=== PATIENT | female | born 1980 | race Caucasian/White ===

== ENCOUNTER 2017-01-07 12:39 | Emergency (ER) | payer OTHER ==
[~2017-01-07] VITALS: Ht 165.1 cm; Wt 80.0 kg
[2017-01-07 12:43] VITALS: BP 133/85; PULSE 80; RESP 15; TEMP 98.2; O2SAT 99
[2017-01-07] MEDS ORDERED: SODIUM CHLOR 0.9% 1000 ML INJ 1,000 ML IV ONE (13:13)
--- NOTE | 2017-01-07 13:14 | PD ---
HPI Chief Complaint: Related Problem Time Seen by Provider: 13:07 Travel History International Travel<30 days: No Contact w/Intl Traveler<30days: No Traveled to known affect area: No History of Present Illness HPI 36-year-old female 17 weeks estimated gestational age presents for evaluation of nausea, vomiting, dizziness and headache. She reports that she was at work today and arrived at 9 AM, shortly after everyone had been evacuated because of a gas leak. She reports that they were allowed back in at 9 AM and around 1.5 hours later she began experiencing nausea, vomiting, dizziness and headache. She reports that other employees have been complaining of some lightheadedness as well. The patient has had some mild abdominal cramping which she relates to the vomiting. She denies any vaginal bleeding, chest pain or shortness of breath, blurred vision, weakness. She has no other complaints. [facility] Past Medical History ?: LMP: 09/10/16 Social History Alcohol Use: No Tobacco Use: No Allergies-Medications (Allergen,Severity, Reaction): Coded Allergies: No Known Allergies (Unverified , 01/07/17) Review of Systems Except as stated in HPI: all other systems reviewed are Neg Physical Exam Narrative GENERAL: Well-developed well-nourished female in no acute distress SKIN: Warm and dry. HEAD: Atraumatic. Normocephalic. EYES: Pupils equal and round. No scleral icterus. No injection or drainage. ENT: No nasal bleeding or discharge. Mucous membranes pink and moist. NECK: Trachea midline. No JVD. CARDIOVASCULAR: Regular rate and rhythm. No murmur appreciated. RESPIRATORY: No accessory muscle use. Clear to auscultation. Breath sounds equal bilaterally. GASTROINTESTINAL: Abdomen soft, non-tender, nondistended. Hepatic and splenic margins not palpable. MUSCULOSKELETAL: No obvious deformities. No edema. NEUROLOGICAL: Awake and alert. No obvious cranial nerve deficits. Motor grossly within normal limits. Normal speech. PSYCHIATRIC: Appropriate mood and affect; insight and judgment normal. Data Data Last Documented VS Vital Signs Date Time Temp Pulse Resp B/P Pulse Ox O2 Delivery O2 Flow Rate FiO2 01/07/17 12:43 98.2 80 15 133/85 99 Orders Arterial Blood Gas (Abg) (01/07/17 ) Basic Metabolic Panel (Bmp) (01/07/17 13:13) Complete Blood Count With Diff (01/07/17 13:13) Magnesium (Mg) (01/07/17 13:13) Ondansetron Inj (Zofran Inj) (01/07/17 13:15) Sodium Chlor 0.9% 1000 Ml Inj (Ns 1000 M (01/07/17 13:13) Acetaminophen (Tylenol) (01/07/17 13:15) Heart Tones (01/07/17 13:15) Labs Laboratory Tests Test 01/07/17 01/07/17 13:20 13:35 Blood Gas Puncture Site RT RADIAL Blood Gas Patient Temperature 98.6 Blood Gas HCO3 19 mmol/L Blood Gas Base Excess -3.9 mmol/L Blood Gas Oxygen Saturation 97 % Arterial Blood pH 7.49 Arterial Blood Partial 25 mmHg Pressure CO2 Arterial Blood Partial 109 mmHG Pressure O2 Arterial Blood Oxygen Content 15.7 Vol % Arterial Blood 1.5 % Carboxyhemoglobin Arterial Blood Methemoglobin 0.7 % Blood Gas Hemoglobin 11.4 G/DL Blood Gas Inspired Oxygen 21 % White Blood Count 9.7 TH/MM3 Red Blood Count 3.88 MIL/MM3 Hemoglobin 11.8 GM/DL Hematocrit 33.4 % Mean Corpuscular Volume 86.3 FL Mean Corpuscular Hemoglobin 30.4 PG Mean Corpuscular Hemoglobin 35.3 % Concent Red Cell Distribution Width 13.9 % Platelet Count 264 TH/MM3 Mean Platelet Volume 7.4 FL Neutrophils (%) (Auto) 70.5 % Lymphocytes (%) (Auto) 23.2 % Monocytes (%) (Auto) 4.9 % Eosinophils (%) (Auto) 0.9 % Basophils (%) (Auto) 0.5 % Neutrophils # (Auto) 6.8 TH/MM3 Lymphocytes # (Auto) 2.2 TH/MM3 Monocytes # (Auto) 0.5 TH/MM3 Eosinophils # (Auto) 0.1 TH/MM3 Basophils # (Auto) 0.1 TH/MM3 CBC Comment DIFF FINAL Differential Comment Sodium Level 137 MEQ/L Potassium Level 3.7 MEQ/L Chloride Level 106 MEQ/L Carbon Dioxide Level 21.4 MEQ/L Anion Gap 10 MEQ/L Blood Urea Nitrogen 5 MG/DL Creatinine 0.47 MG/DL Estimat Glomerular Filtration 151 ML/MIN Rate Random Glucose 79 MG/DL Calcium Level 8.2 MG/DL Magnesium Level 1.9 MG/DL [facility] Medical Decision Making Medical Screen Exam Complete: Yes Emergency Medical Condition: Yes Medical Record Reviewed: Yes Differential Diagnosis Carbon monoxide poisoning, dehydration, electrolyte abnormality, hyperemesis Narrative Course 36-year-old female who is 17 weeks presents with nausea, vomiting, headache and dizziness after getting in a building that had some sort of gas leak. We'll check basic lab work, carboxyhemoglobin levels. She'll be given IV fluids, Zofran and Tylenol. Lab work is unremarkable. Upon reexamination she feels improved. She is stable for discharge. She has Phenergan at home. Diagnosis Primary Impression: Nausea and vomiting Qualified Code: R11.2 - Nausea and vomiting, intractability of vomiting not specified, unspecified vomiting type Additional Impression: Cephalgia Qualified Code: R51 - Nonintractable headache, unspecified chronicity pattern , unspecified headache type Additional Instructions: Phenergan for nausea. Stay well hydrated. F/U with clinical research monitor. Return for any emergent medical conditions. Med/Other Pt SpecificInfo: No Change to Meds Disposition: 01 DISCHARGE HOME Condition: Stable Jb Martin Jan 07, 2017 13:14
[2017-01-07] MEDS ORDERED: ONDANSETRON HCL 4 MG/2 ML VIAL IVP ONE (13:15)
[2017-01-07] MEDS ORDERED: ACETAMINOPHEN 325 MG TAB PO ONE (13:15)
[2017-01-07 13:32] LABS: BLOOD GAS BASE EXCESS -3.9 mmol/L (-2-2); BLOOD GAS CARBOXYHEMOGLOBIN 1.5 % (0-4); BLOOD GAS HCO3 19 mmol/L (22-26); BLOOD GAS METHEMOGLOBIN 0.7 % (0-2); BLOOD GAS O2 HGB SATURATION 97 % (90-100); BLOOD GAS OXYGEN CONTENT 15.7 Vol % (12.0-20.0); BLOOD GAS PCO2 25 mmHg (38-42); BLOOD GAS PO2 109 mmHG (61-120); BLOOD GAS TOTAL HGB 11.4 G/DL (12.0-16.0); TEMP CORR TO 98.6
[2017-01-07 13:33] LABS: CRITICAL VALUE NO; DRAW SITE RT RADIAL; FIO2 21 %; NUMBER OF ARTERIAL PUNCTURES 1; STAT YES; ULNAR PULSE PRESENT
[2017-01-07 13:50] LABS: AUTOMATED NEUTROPHIL # 6.8 TH/MM3 (1.8-7.7); BASOPHIL # 0.1 TH/MM3 (0-0.2); BASOPHIL % 0.5 % (0.0-2.0); EOSINOPHIL # 0.1 TH/MM3 (0-0.4); EOSINOPHIL % 0.9 % (0.0-4.0); HEMATOCRIT 33.4 % (35.0-46.0); HEMO FLAGS DIFF FINAL; LYMPH % 23.2 % (9.0-44.0); LYMPHOCYTE # 2.2 TH/MM3 (1.0-4.8); MEAN CELL VOLUME 86.3 FL (80.0-100.0); MEAN CORPUSCULAR HEMOGLOBIN 30.4 PG (27.0-34.0); MEAN CORPUSCULAR HGB CONC 35.3 % (32.0-36.0); MONO % 4.9 % (0.0-8.0); NEUT % 70.5 % (16.0-70.0); PLATELET COUNT 264 TH/MM3 (150-450); RED BLOOD COUNT 3.88 MIL/MM3 (4.00-5.30); RED CELL DISTRIBUTION WIDTH 13.9 % (11.6-17.2); WHITE BLOOD COUNT 9.7 TH/MM3 (4.0-11.0)
[2017-01-07 14:06] LABS: BICARBONATE 21.4 MEQ/L (21.0-32.0); MAGNESIUM 1.9 MG/DL (1.5-2.5); POTASSIUM 3.7 MEQ/L (3.5-5.1)
[2017-01-07 15:58] VITALS: BP 88/51
== END 2017-01-07 16:04 | disposition home or self-care (01) ==
LOC: NEPD 12:39
DX: R11.2 Nausea with vomiting, unspecified (principal); R51 Headache; O26.92 Pregnancy related conditions, unspecified, second trimester; Z3A.17 17 weeks gestation of pregnancy
CPT/HCPCS: 36600; 80048; 82805; 83735; 85025; 96374; 99284; J2405; J7030

== ENCOUNTER 2017-06-03 13:45 | Emergency (ER) | payer OTHER ==
--- NOTE | 2017-06-03 14:40 | PD ---
HPI Chief Complaint Uterine contractions 1 day 38 weeks Date Seen: Jun 03, 2017 Time Seen: 14:00 Travel History International Travel<30 Days: No Contact w/Intl Traveler<30Days: No Known Affected Area: No History of Present Illness HPI Pt is a 37 yo at 38 weeks, presenting with contractions every 5-10 minutes since 9:30 this AM. care with Dr Nash, previously uncomplicated. EDC 06-17-2017 GBS negative, Denies vaginal bleeding or leaking. Active movements. Weeks Gestation: 38 Para: 0 : 1 History Past Medical History Narrative Medical h/o endometriosis Medical History: Denies Significant Hx Obstetric History Obstetric History PRIMIGRAVIDA Past Surgical History Narrative Surgical Laparoscopy for endometriosis Family History Family History: Negative Social History Alcohol Use: No Tobacco Use: No Substance Abuse: No Allergies-Medications (Allergen,Severity, Reaction): Coded Allergies: No Known Allergies (Unverified , 01/07/17) Review of Systems Except as stated in HPI: all other systems reviewed are Neg Physical Exam Narrative GENERAL: Well-nourished, well-developed patient. SKIN: Warm and dry. HEAD: Normocephalic and atraumatic. EYES: No scleral icterus. No injection or drainage. ENT: No nasal drainage noted. Mucous membranes pink. Airway patent. NECK: Supple, trachea midline. No JVD. CARDIOVASCULAR: Regular rate and rhythm without murmurs, gallops, or rubs. RESPIRATORY: Breath sounds equal bilaterally. No accessory muscle use. BREASTS: Bilateral exam showed no masses , no retractions, no nipple discharge. ABDOMEN/GI: Abdomen soft, non-tender, bowel sounds present, no rebound, no guarding Gravid to [38] weeks size Fundal Height: [38] GENITOURINARY: External Genitalia: intact and normal in appearance BUS glands: [wnl] Cervix: [soft] Dilatation: [2cm] Effacement: [70%] Station: [-3] Presentation: [vertex] Membranes: [intact] Uterine Contractions: [5-10 minutes] FHT's: Category: [1] Baseline: [140s] Reactive: [] Variability: [moderate] Decels: [none] EXTREMITIES: No cyanosis or edema. BACK: Nontender without obvious deformity. No CVA tenderness. NEUROLOGICAL: Awake and alert. Motor and sensory grossly within normal limits. Five out of 5 muscle strength in all muscle groups. Normal speech. Data Data Vital Signs Reviewed: Yes Group B Strep: Negative MDM Plan Pt is a 37 yo at 38 weeks. Presents with c/o uterine contractions. Cervix 2cm dilated, unchanged from exam earlier in the week at Doctor's office. Will allow to ambulate and recheck in 1 hour. Pt was rechecked after 1 hour without any change. status reassuring Cat 1. Will discharge home with labor precautions. Diagnosis Diagnosis: Primary Impression: 38 weeks gestation of Additional Impressions: Uterine contractions during False labor after 37 weeks of gestation without delivery Disposition: DISCHARGE HOME Condition: Good Neno Williamson MD Jun 03, 2017 14:40
== END 2017-06-03 15:26 | disposition home or self-care (01) ==
LOC: HOBED 13:45
DX: O47.1 False labor at or after 37 completed weeks of gestation (principal); Z3A.38 38 weeks gestation of pregnancy
CPT/HCPCS: 59025

== ENCOUNTER 2017-06-15 23:53 | Inpatient (IN) | payer OTHER ==
[~2017-06-15] VITALS: Ht 165.1 cm; Wt 93.4 kg
[2017-06-16] VITALS (59 sets, daily range): BP systolic 98–147; BP diastolic 52–98; PULSE 65–108; RESP 14–20; TEMP 97.4–98; O2SAT 96–100
[2017-06-16] MEDS ORDERED: LACTATED RINGER'S 1000 ML INJ 1,000 ML IV PRN (00:21)
[2017-06-16] MEDS ORDERED: LIDOCAINE HCL 1% 50 ML VIAL INFIL PRN (00:30)
[2017-06-16] MEDS ORDERED: CITRIC ACID-SODIUM CITRATE LIQ 30 ML UDC PO SCH (00:30)
[2017-06-16] MEDS ORDERED: MINERAL OIL 10 ML VIAL TOPICAL PRN (00:30)
[2017-06-16] MEDS ORDERED: SODIUM CHLORID 0.9% 500 ML INJ 500 ML IV PRN (00:30)
[2017-06-16] MEDS ORDERED: LIDOCAINE HCL 1% 50 ML VIAL I-DERMAL PRN (00:30)
[2017-06-16] MEDS ORDERED: OXYTOCIN 30 UNITS-500ML PREMIX 500 ML IV ONE (00:30)
--- NOTE | 2017-06-16 00:30 | HHI.HP ---
HPI Chief Complaint Water broke Date Seen: Jun 16, 2017 Time Seen: 00:20 Travel History International Travel<30 Days: No Contact w/Intl Traveler<30Days: No Known Affected Area: No History of Present Illness HPI Patient is 37-year-old white female at 39 weeks who has complaints of water breaking at 11:40 PM. She continually fluid. Her amnio sure is positive night. Heart rate tracing is reactive and she is having occasional contraction. Weeks Gestation: 39 Para: 0 : 1 History Obstetric History Obstetric History Patient's blood pressures been borderline high within the last couple weeks Social History Alcohol Use: No Tobacco Use: No Substance Abuse: No Allergies-Medications (Allergen,Severity, Reaction): Coded Allergies: No Known Allergies (Unverified Allergy, Unknown, 06/16/17) Review of Systems General / Constitutional: No: Fever, Weight Gain, Chills, Other Eyes: No: Diploplia, Blurred Vision, Visual changes, Pain, Photophobia HENT: No: Headaches, Vertigo, Lightheadedness Cardiovascular: No: Irregular Rhythm, Chest Pain or Discomfort, Palpitations, Tachycardia, Syncope, Varicosities, Edema, Cyanosis Respiratory: No: Cough, Short of Breath, Other Gastrointestinal: No: Nausea, Vomiting, Diarrhea Genitourinary: No: Decreased Urinary Output, Oliguria Musculoskeletal: No: Limited ROM, Weakness, Cramping, Edema, Pain Skin: No Rash, No Itching, No Dryness, No Lumps, No Change in Pigmentation, No Change in Nails, No Alopecia, No Lesions Neurologic: No: Weakness, Dizziness, Syncope, Focal Abnormalities, Coordination Problem, Headache, Slurred Speech, Seizures Psychiatric: No: Depression, Suicidal Ideations, Homicidal Ideation Endocrine: No: Heat Intolerance, Cold Intolerance, Polydipsia, Polyuria, Other Physical Exam Narrative GENERAL: Well-nourished, well-developed patient. SKIN: Warm and dry. HEAD: Normocephalic and atraumatic. EYES: No scleral icterus. No injection or drainage. ENT: No nasal drainage noted. Mucous membranes pink. Airway patent. NECK: Supple, trachea midline. No JVD. CARDIOVASCULAR: Regular rate and rhythm without murmurs, gallops, or rubs. RESPIRATORY: Breath sounds equal bilaterally. No accessory muscle use. BREASTS: Bilateral exam showed no masses , no retractions, no nipple discharge. ABDOMEN/GI: Abdomen soft, non-tender, bowel sounds present, no rebound, no guarding Gravid to [39-] weeks size Fundal Height: [39-] GENITOURINARY: External Genitalia: intact and normal in appearance BUS glands: [-] Cervix: [Posterior-] Dilatation: [2-] Effacement: [50-] Station: [-3] Presentation: [-vtx] Membranes: [ ruptured] amnio sure positive Uterine Contractions: [occ-] FHT's: Category: [-1] Baseline: [-133] Reactive: [-yes] Variability: [-mod] Decels: [-0] EXTREMITIES: No cyanosis or edema. BACK: Nontender without obvious deformity. No CVA tenderness. NEUROLOGICAL: Awake and alert. Motor and sensory grossly within normal limits. Five out of 5 muscle strength in all muscle groups. Normal speech. Caprini VTE Risk Assessment Caprini VTE Risk Assessment: No/Low Risk (score <= 1) Caprini Risk Assessment Model Point Value = 1 Point Value = 2 Point Value = 3 Point Value = 5 Age 41-60 Minor surgery BMI > 25 kg/m2 Swollen legs Varicose veins or History of unexplained or recurrent spontaneous Oral contraceptives or hormone replacement Sepsis (< 1 month) Serious lung disease, including pneumonia (< 1 month) Abnormal pulmonary function Acute myocardial infarction Congestive heart failure (< 1 month) History of inflammatory bowel disease Medical patient at bed rest Age 61-74 Arthroscopic surgery Major open surgery (> 45 min) Laparoscopic surgery (> 45 min) Malignancy Confined to bed (> 72 hours) Immobilizing plaster cast Central venous access Age >= 75 History of VTE Family history of VTE Factor V Leiden Prothrombin [id number] Lupus anticoagulant Anticardiolipin antibodies Elevated serum homocysteine Heparin-induced thrombocytopenia Other congenital or acquired thrombophilia Stroke (< 1 month) Elective arthroplasty Hip, pelvis, or leg fracture Acute spinal cord injury (< 1 month) Prophylaxis Regimen Total Risk Factor Score Risk Level Prophylaxis Regimen 0-1 Low Early ambulation 2 Moderate Order ONE of the following: *Sequential Compression Device (SCD) *Heparin 5000 units SQ BID 3-4 Higher Order ONE of the following medications: *Heparin 5000 units SQ TID *Enoxaparin/Lovenox 40 mg SQ daily (WT < 150 kg, CrCl > 30 mL/min) *Enoxaparin/Lovenox 30 mg SQ daily (WT < 150 kg, CrCl > 10-29 mL/min) *Enoxaparin/Lovenox 30 mg SQ BID (WT < 150 kg, CrCl > 30 mL/min) AND/OR *Sequential Compression Device (SCD) 5 or more Highest Order ONE of the following medications: *Heparin 5000 units SQ TID (Preferred with Epidurals) *Enoxaparin/Lovenox 40 mg SQ daily (WT < 150 kg, CrCl > 30 mL/min) *Enoxaparin/Lovenox 30 mg SQ daily (WT < 150 kg, CrCl > 10-29 mL/min) *Enoxaparin/Lovenox 30 mg SQ BID (WT < 150 kg, CrCl > 30 mL/min) AND *Sequential Compression Device (SCD) Data Data Orders Orders Admit To Inpatient (06/16/17 ) Vital Signs (Adult) .Per protocol (06/16/17 00:) Heart (06/16/17:) Amnioinfusion (06/16/17:) Urinary Catheter Management .ONCE (06/16/17 00:21) Diet Liquid (06/16/17 Breakfast) Lactated Ringer's 1000 Ml Inj (Lr 1000 M (06/16/17 00:21) Lactated Ringer's 1000 Ml Inj (Lr 1000 M (06/16/17 00:21) Sodium Chlorid 0.9% 500 Ml Inj (Ns 500 M (06/16/17 00:30) Sodium Chlor 0.9% 1000 Ml Inj (Ns 1000 M (06/16/17 00:41) Lidocaine 1% Inj (50 Ml) (Xylocaine 1% I (06/16/17 00:30) Citric Acid-Sodium Citrate Liq (Bicitra (06/16/17 00:30) Fentanyl Inj (Fentanyl Inj) (06/16/17 00:30) Fentanyl Inj (Fentanyl Inj) (06/16/17 00:30) Complete Blood Count With Diff (06/16/17:21) Hold Clot (06/16/17:) Abo/Rh Blood Type (06/16/17:) Urinalysis - C+S If Indicated (06/16/17:) Drug Screen, Random Urine (11/18/17 00:21) Type And Screen (06/16/17 00:21) Resp Oxygen Non Rebreathe Mask (06/16/17 ) ^ Epidural / Intrathecal Infus (06/16/17 00:21) Oxytocin 30 Units-500ml Premix (Pitocin (06/16/17 00:30) Lidocaine 1% Inj (50 Ml) (Xylocaine 1% I (06/16/17 00:30) Light Mineral Oil (Muri-Lube Oil) (06/16/17 00:30) Ob (2e) Additional Admit Info (06/16/17 00:22) Comprehensive Metabolic Panel (06/16/17 00:23) Assessment/Plan Assessment and Plan Patient 37-year-old white female at [address] [facility] for care and we'll schedule for induction in approximately 48 hours from now just because of some recent elevated blood pressures. Her blood pressures 138/98. She is ruptured with positive amnio sure. Cervix is unchanged from previous exams proximally 2/50% very posterior almost unreachable cervix Impression is SROM at 39 weeks mild gestational hypertension Plan is admission, augmentation/induction as needed, check PIH lab, called the automation engineering manager physician for Alex Brewer II, MD Jun 16, 2017 00:30
[2017-06-16] MEDS ORDERED: SODIUM CHLOR 0.9% 1000 ML INJ 1,000 ML IV PRN (00:41)
[2017-06-16] MEDS ORDERED: OXYTOCIN 30 UNITS-500ML PREMIX 500 ML IV SCH ×3 (00:45→17:30)
[2017-06-16] MEDS: LACTATED RINGER'S 1000 ML INJ 1,000 ML IV SCH ×2 (00:57→09:37)
[2017-06-16] MEDS ORDERED: Prenatal Vitamin PO (01:00)
[2017-06-16 01:11] LABS: AUTOMATED NEUTROPHIL # 7.4 TH/MM3 (1.8-7.7); BASOPHIL # 0.1 TH/MM3 (0-0.2); BASOPHIL % 0.5 % (0.0-2.0); EOSINOPHIL # 0.2 TH/MM3 (0-0.4); EOSINOPHIL % 1.5 % (0.0-4.0); HEMATOCRIT 36.8 % (35.0-46.0); HEMO FLAGS DIFF FINAL; LYMPH % 20.1 % (9.0-44.0); LYMPHOCYTE # 2.1 TH/MM3 (1.0-4.8); MEAN CELL VOLUME 89.6 FL (80.0-100.0); MEAN CORPUSCULAR HEMOGLOBIN 30.7 PG (27.0-34.0); MEAN CORPUSCULAR HGB CONC 34.2 % (32.0-36.0); MONO % 5.8 % (0.0-8.0); NEUT % 72.1 % (16.0-70.0); PLATELET COUNT 257 TH/MM3 (150-450); RED BLOOD COUNT 4.11 MIL/MM3 (4.00-5.30); RED CELL DISTRIBUTION WIDTH 15.6 % (11.6-17.2); WHITE BLOOD COUNT 10.3 TH/MM3 (4.0-11.0)
[2017-06-16 01:12] LABS: BLOOD, URINE TRACE (NEG); GLUCOSE,URINE NEG (NEG); KETONE, URINE NEG (NEG); NITRITE,URINE NEG (NEG); PH, URINE 6.5 (5.0-8.5); URINE COLOR LIGHT-YELLOW (YELLW/STRAW)
[2017-06-16 01:24] LABS: MUCUS URINE RARE /lpf (OCC)
[2017-06-16 01:25] LABS: BACTERIA, URINE MOD /hpf; RBC, URINE 0-3 /hpf (0-3); SQUAMOUS EPITHELIAL CELL URINE 0-5 /hpf (0-5); WBC, URINE 0-2 /hpf (0-5)
[2017-06-16 01:26] LABS: ALT (GPT) 18 U/L (10-53); ANION GAP 10 MEQ/L (5-15); AST (GOT) 15 U/L (15-37); BICARBONATE 20.8 MEQ/L (21.0-32.0); BLOOD UREA NITROGEN 9 MG/DL (7-18); CHLORIDE 107 MEQ/L (98-107); COMMENT (UR) CULTURE INDICATED; CULTURE IF INDICATED CULTURE INDICATED; GLOMERULAR FILTRATION RATE 136 ML/MIN (>89); SODIUM (NA) 138 MEQ/L (136-145)
[2017-06-16 01:28] LABS: ALKALINE PHOSPHATASE 169 U/L (45-117); TOTAL BILIRUBIN ADULT 0.2 MG/DL (0.2-1.0)
[2017-06-16] MEDS ORDERED: ALUMINUM/MAGNESIUM/SIMETH 30 ML CUP PO PRN ×3 (02:00→17:30)
[2017-06-16] MEDS ORDERED: fentaNYL 2MCG-BUPIV 0.125% INJ 100 ML ONE (02:31)
[2017-06-16] MEDS ORDERED: BUPIVACAINE HCL PF 0.25% 10 ML VIAL ONE ×2 (02:35→03:24)
[2017-06-16] MEDS ORDERED: ePHEDrine/NS 25 MG/5 ML SYR ONE (02:36)
[2017-06-16] MEDS ORDERED: ePHEDrine/NS 25 MG/5 ML SYR IV PUSH PRN (03:30)
[2017-06-16] MEDS ORDERED: fentaNYL 2MCG-BUPIV 0.125% 100 ML EPIDURAL SCH (03:30)
[2017-06-16] MEDS ORDERED: DO NOT ADMINISTER ANTICOAGULANTS PRN (03:30)
[2017-06-16] MEDS ORDERED: NO SYSTEM NARCOTICS PRN (03:30)
[2017-06-16] MEDS ORDERED: IBUP-232 PO (07:26)
--- NOTE | 2017-06-16 07:30 | HHI.DCPOC ---
Discharge Care Plan Diagnosis: (1) 39 weeks gestation of (2) Normal vaginal delivery (3) Bilobate placenta Your Health Problems Are: Vaginal delivery Report Symptoms to Your Doctor -Temperature above 100.5 degrees -Redness, of incision or excessive or foul smelling drainage -Unusual pain or calf pain -Increased vaginal bleeding -Painful or difficulty urinating -Feelings of extreme sadness or anxiety after 2 weeks Goals to Promote Your Health * To prevent worsening of your condition and complications * To maintain your health at the optimal level Directions to Meet Your Goals Take your medications as prescribed Follow your dietary instruction Follow activity as directed Ensure plenty of rest for recovery Drink fluids for hydration Keep your appointments as scheduled Take your immunizations and boosters as scheduled If your symptoms worsen call your PCP, if no PCP go to Urgent Care Center or Emergency Room Smoking is Dangerous to Your Health. Avoid second hand smoke Call the 24-hour crisis hotline for domestic abuse at Jonathan Xiong MD Jun 16, 2017 07:29
--- NOTE | 2017-06-16 08:17 | PD.OB.DELI ---
Weeks gestation: 39 (39w6d) Gest age assessed date: Jun 16, 2017 Gest age assessed time: 07:00 Pt started active labor?: Yes Medical induction of labor?: No Artificial rupture of membrane: No (SROM @ 2340 on 06/15/17) Anesthesia: Epidural Episiotomy: None Vaginal Delivery: Normal, Spontaneous Presentation: Occiput anterior Nuchal Cord: None Delayed cord clamping (45 sec): Yes Shoulder Dystocia: Other (No dystocia) : Female, Single Delivery date: Jun 16, 2017 Delivery time: 07:47 One Minute : 9 Five Minute : 9 Placenta: Spontaneous delivery, Other (bilobed appearing calcified placenta, not diagnosed antenatally, do not believe any missing cotyledons, but would be suspicious if have problems with bleeding ) Laceration: 2 deg (repaired with running 3-0 Vicryl) Repair: Vicryl running Estimated blood loss: 200 Additional Information Patient is a 37-year-old G1 now P1 001 he presented with spontaneous rupture membranes, she was started on Pitocin for augmentation, progressed to complete, the nurses pushed with the patient with reassuring heart tones and home into the room and had was on the perineum. The perineum was supported, with 1-2 pushes she delivered the head it was a lot arrested to naturally, gentle downward guidance and upper guidance the anterior and posterior shoulders were delivered respectively with ease. The torso and lower extremities followed without difficulty. The infant was placed on mom's abdomen and had spontaneous cry. The cord was clamped and cut, the perineum was inspected and repaired as above, the uterus is firm and the patient tolerated procedure well If patient has any concerns about bleeding would have a high suspicion for possible retained products given abnormal bilobed appearance of placenta. Jonathan Xiong MD Jun 16, 2017 08:17
[2017-06-16] MEDS ORDERED: MEASLES, MUMPS, RUBELLA VACCINE 0.5 ML VIAL SQ ONE (16:00)
[2017-06-16] MEDS ORDERED: WITCH HAZEL 50%/GLYCERIN 12.5% 40 PAD JAR TOPICAL PRN ×2 (16:15→17:30)
[2017-06-16] MEDS ORDERED: BENZOCAINE 20% TOPICAL SPRAY 60 ML CAN TOPICAL PRN ×2 (16:15→17:30)
[2017-06-16] MEDS ORDERED: ACETAMINOPHEN 325 MG TAB PO PRN (16:15)
[2017-06-16] MEDS ORDERED: DOCUSATE SODIUM 50 MG/SENNA 8.6 MG TAB PO PRN ×2 (16:15→17:30)
[2017-06-16] MEDS: IBUPROFEN 800 MG TAB PO PRN (16:17)
[2017-06-16] MEDS ORDERED: ONDANSETRON ODT 4 MG TAB PO PRN ×2 (16:45→17:30)
[2017-06-16] MEDS ORDERED: ZOLPIDEM TARTRATE 5 MG TAB PO PRN ×2 (16:45→17:30)
[2017-06-16] MEDS ORDERED: DIPHTH/TETANUS/ACEL PERTUSSIS (BOOSTER) 0.5 ML VIAL/PFS IM ONE (17:00)
[2017-06-16] MEDS ORDERED: SODIUM CHLORIDE 0.9% FLUSH 10 ML FLUSH IV FLUSH PRN (17:30)
[2017-06-16] MEDS ORDERED: oxyCODONE/ACETAMINOPHEN 5 MG/325 MG TAB PO PRN ×2 (18:00)
[2017-06-16] MEDS ORDERED: SODIUM CHLORIDE 0.9% FLUSH 10 ML FLUSH IV FLUSH SCH (21:00)
--- NOTE | 2017-06-17 08:39 | HHI.OB ---
Subjective Post Day: 1 Remarks doing well, VB < menses, pain controlled, voiding, TPO no n/v Objective Vitals/I&O Vital Signs Date Time Temp Pulse Resp B/P (MAP) Pulse Ox O2 Delivery O2 Flow Rate FiO2 06/16/17 20:00 97.4 80 20 122/73 (89) 96 06/16/17 17:20 66 18 124/73 (90) 06/16/17 10:53 97.6 68 16 06/16/17 10:53 131/79 (96) 06/16/17 09:54 18 06/16/17 09:46 71 129/70 (89) 06/16/17 09:30 18 06/16/17 09:30 76 120/70 (87) 06/16/17 09:16 78 122/67 (85) 06/16/17 09:00 72 136/77 (96) 06/16/17 08:54 18 06/16/17 08:46 71 121/76 (91) Objective Remarks GENERAL: Well-nourished, well-developed patient. CARDIOVASCULAR: Regular rate and rhythm without murmurs, gallops, or rubs. RESPIRATORY: Breath sounds equal bilaterally. No accessory muscle use. ABDOMEN/GI: Abdomen soft, non-tender. Fundus: Firm, non-tender at umbilicus. GENITOURINARY: Light to moderate bleeding. EXTREMITIES: No cyanosis or edema, non-tender, without signs of DVT. Medications and IVs Current Medications Medications (Trade) Dose Ordered Sig/Bobby Route Start Time Stop Time Status Last Admin Fentanyl/ Bupivacaine HCl 100 ml @ 0 mls/hr TITRATE EPIDURAL 06/16/17 03:30 06/16/17 07:15 (Motrin) 800 mg Q8H PRN PO 06/16/17 16:15 06/16/17 16:17 (Tylenol) 650 mg Q4H PRN PO 06/16/17 16:15 06/16/17 16:17 (NS Flush) 2 ml BID IV FLUSH 06/16/17 21:00 (NS Flush) 2 ml UNSCH PRN IV FLUSH 06/16/17 17:30 (Americaine 20% Top Spr) 1 spray Q4H PRN TOPICAL 06/16/17 17:30 (Tucks Pads) 1 applic QID PRN TOPICAL 06/16/17 17:30 (Medina-Colace) 2 tab Q12H PRN PO 06/16/17 17:30 (Ambien) 5 mg HS PRN PO 06/16/17 17:30 (Mag-Al Plus Susp Liq) 15 ml Q8H PRN PO 06/16/17 17:30 (Zofran Odt) 4 mg Q6H PRN PO 06/16/17 17:30 (Percocet 5-325 Mg) 1 tab Q4H PRN PO 06/16/17 18:00 (Percocet 5-325 Mg) 2 tab Q4H PRN PO 06/16/17 18:00 06/16/17 18:03 Assessment/Plan Problem List: (1) Bilobate placenta ICD Codes: O30.009 - Twin , unspecified number of placenta and unspecified number of amniotic sacs, unspecified trimester (2) Normal vaginal delivery ICD Codes: O80 - Encounter for full-term uncomplicated delivery Assessment and Plan Patient 37 yo s/p term 1. PPD #1: doing well, anticipate d/c home in next 24hrs, discussed expectation, precautions and follow up. 2. Elevated BPs: resolved, HELLP WNL on arrival 3. PP: female Jonathan Xiong MD Jun 17, 2017 08:39
[2017-06-17 10:30] VITALS: BP 116/74; PULSE 83; RESP 18; TEMP 98.2
[2017-06-17] MEDS: IBUPROFEN 800 MG TAB PO PRN (12:47)
[2017-06-17] MEDS ORDERED: INFLUENZA VIRUS VACCINE (QUADRIVALENT) 0.5 ML SYR IM ONE (13:00)
--- NOTE | 2017-06-18 08:08 | MH ---
cc: CALEB CANO M.D. DATE OF ADMISSION: 06/16/2017 DATE OF : 1980 REASON FOR ADMISSION The patient is admitted for induction of labor at term. PATIENT HISTORY The patient is a 37-year-old female, 1, para 0, last menstrual period 09/12/2016. Estimated date of confinement is 06/17/2017 confirmed by first trimester ultrasound November 14, 2016. Nada-rump length was 9 weeks and 2 days. The patient was evaluated for term gestation. Her blood pressure has fluctuated with systolics between 108 and 124 and diastolics between 72 and 96. She has no proteinuria. Denies headache, blurry vision, nausea, vomiting, abdominal pain. Good gross movement is documented. Ultrasound today revealed a biophysical profile of 8/8, decreased amniotic fluid volume which necessitated a nonstress test. The nonstress test was reactive. Recommendation was to proceed with scheduled induction. The patient's cervix is posterior, -2, 50% effaced, 2 cm dilated, vertex presentation. OBSTETRICAL HISTORY The patient has had an uncomplicated OB course. Group-B strep negative. Blood type is O-negative. Received RhoGAM appropriately. The patient's genetic testing is all normal. The patient does not know the gender of her baby and would prefer to be surprised at the delivery. ALLERGIES 1. BENADRYL. 2. LATEX. MEDICATIONS Current medications include vitamins only. PAST MEDICAL HISTORY She does have a past history of anxiety disorder, currently on no medication. PAST SURGICAL HISTORY Previous laparoscopy in the year 1999 and 2005 for pelvic pain and ovarian cysts. REVIEW OF SYSTEMS The patient denies any systemic or chronic disease states. SOCIAL HISTORY The patient is . Denies use of alcohol, tobacco or illicit substance. FAMILY HISTORY Noncontributory. PHYSICAL EXAMINATION GENERAL: The patient is a well-appearing, well-nourished female. VITAL SIGNS: She is 5 feet 6 and weighs 206 pounds. Total weight gain for the is approximately over 25 pounds. The patient's blood pressure as stated above. Blood pressure today is 124/90, repeat was 128/72. HEENT/NECK: No adenopathy or thyromegaly. Pupils are equal, round and reactive to light. Neck is supple. Full range of motion. LUNGS: Clear in all delgado. CARDIAC: Regular rhythm without murmur, rub or gallop. ABDOMEN: Gravid. Fundal height is 42 cm. EXTREMITIES: Symmetrical, full range of motion. There is no cyanosis, clubbing or edema. NEUROLOGIC: Grossly intact, nonfocal. CERVIX: 50%, 2 cm, -2 station, posterior vertex. ASSESSMENT/PLAN The patient is 39 weeks and 5 days on the day of the dictation. On the date of admission the patient will be 40 weeks. Decreasing placental function, grade 3 placenta. Biophysical profile was 03/06 with a reactive non-stress test. Group-B strep status negative. Estimated weight 8 pounds. MD HARMONY Barclay/BT /2:57 PM /8:11 AM
== END 2017-06-17 14:49 | disposition home or self-care (01) | DRG 775 ==
LOC: HOBED 23:53 → H2EB 06-16 00:23 → H1EA 06-16 10:46
PROVIDERS: ADMIT Obstetrics & Gynecology; ATTEND Obstetrics & Gynecology
PROC: 10E0XZZ Delivery of Products of Conception, External Approach (ICD-10-PCS; principal; 2017-06-16)
PROC: 0KQM0ZZ Repair Perineum Muscle, Open Approach (ICD-10-PCS; 2017-06-16)
DX: O43.193 Other malformation of placenta, third trimester (principal); O70.1 Second degree perineal laceration during delivery; O13.4 Gestational [pregnancy-induced] hypertension without significant proteinuria, complicating childbirth; Z37.0 Single live birth; Z3A.39 39 weeks gestation of pregnancy; Z23 Encounter for immunization
CPT/HCPCS: 80053; 80307; 81001; 84112; 85025; 85461; 86850; 86900; 86901; 87086; 90384; 90686; J2590; J2790; J3010; J7120; Q2038